=== PATIENT | male | born 1985 | race Two or more races ===

== ENCOUNTER 2023-05-06 07:58 | Emergency (ER) | payer MEDICAID ==
[~2023-05-06] VITALS: Ht 170.2 cm; Wt 63.5 kg
[~2023-05-06 07:58] MED LIST: AZIT250T13 PO
--- NOTE | 2023-05-06 08:26 | NUR ---
BIBS C/O THROAT PAIN SEEN A WEEK FOR SAME COMPLAINT STATES THAT HES NOW HE IS HAVING SHORTNESS OF BREATH, STATED HE FEEL WARM INSID EBODY. NO MEDS TAKEN
[2023-05-06] MEDS ORDERED: AMOXICILLIN TRIHYDRATE 250 MG CAPSULE ONE (08:27)
[2023-05-06] MEDS ORDERED: IBUPROFEN 600 MG TABLET ONE (08:27)
--- NOTE | 2023-05-06 08:29 | NUR ---
ORAL MEDS GIVEN
[2023-05-06] MEDS ORDERED: AMOX500C2 PO (08:31)
[2023-05-06] MEDS: IBUPROFEN 600 MG TABLET PO ONE (08:32)
[2023-05-06] MEDS: AMOXICILLIN TRIHYDRATE 500 MG CAPSULE PO ONE (08:32)
[2023-05-06 08:38] VITALS: BP 116/70; TEMP 98.2; O2SAT 99
--- NOTE | 2023-05-06 08:38 | NUR ---
Patient discharged to home in stable condition. Written and verbal after care instructions given. Patient verbalizes understanding of instruction.
== END 2023-05-06 08:38 | disposition home or self-care (01) ==
LOC: ER 08:02
DX: J02.9 Acute pharyngitis, unspecified (principal); Z79.899 Other long term (current) drug therapy; Z59.00 Homelessness unspecified

== ENCOUNTER 2023-05-10 23:39 | Emergency (ER) | payer MEDICAID ==
[~2023-05-10] VITALS: Ht 167.6 cm; Wt 63.5 kg
[~2023-05-10 23:39] MED LIST changes: +AMOX500C2 PO
[2023-05-11 01:50] VITALS: BP 124/78; TEMP 97.3; O2SAT 100
== END 2023-05-11 03:54 | disposition home or self-care (01) ==
LOC: IVT 23:42
DX: J02.8 Acute pharyngitis due to other specified organisms (principal); Z79.899 Other long term (current) drug therapy; Z59.00 Homelessness unspecified
CPT/HCPCS: 86403-TC

== ENCOUNTER 2023-06-08 20:15 | Emergency (ER) | payer MEDICAID ==
[~2023-06-08] VITALS: Ht 170.2 cm; Wt 63.5 kg
[2023-06-08 22:23] LABS: BASOPHILS # (AUTO) 0.1 K/uL (0.0-0.2); BASOPHILS % (AUTO) 1.2 % (0.0-2.0); EOSINOPHILS # (AUTO) 0.7 K/uL (0.0-0.7); EOSINOPHILS % (AUTO) 6.4 % (0.0-6.0); HEMATOCRIT 42 % (39-51); LYMPHOCYTES # (AUTO) 4.7 K/uL (0.8-4.8); LYMPHOCYTES % (AUTO) 44.5 % (20.0-44.0); MEAN CORPUSCULAR HEMOGLOBIN 27 PG (26.0-33.0); MEAN CORPUSCULAR HGB CONC 33 g/dl (31.0-36.0); MEAN CORPUSCULAR VOLUME 83 fL (80-96); MONOCYTES # (AUTO) 0.9 K/uL (0.1-1.30); MONOCYTES % (AUTO) 8.2 % (2.0-12.0); NEUTROPHILS # (AUTO) 4.2 K/uL (1.8-8.9); NEUTROPHILS % (AUTO) 39.7 % (43.0-81.0); PLATELET COUNT (AUTO) 195 K/uL (150-450); RED BLOOD CELL COUNT(AUTO) 5.09 MIL/uL (4.5-6.0); RED CELL DISTRIBUTION WIDTH 13.4 % (11.5-15.0); WHITE BLOOD COUNT (AUTO) 10.5 K/uL (4.3-11.0)
[2023-06-08 22:31] LABS: CALCIUM, SERUM 8.8 mg/dL (8.5-10.1); CARBON DIOXIDE 22 mmol/L (21-32); CHLORIDE 107 mmol/L (98-107); CREATININE 1.4 mg/dL (0.6-1.3); GLUCOSE 109 mg/dL (74-106); POTASSIUM 3.6 mmol/L (3.5-5.1); SODIUM SERUM 141 mmol/L (136-145); UREA NITROGEN, BLOOD 24 mg/dL (7-18)
[2023-06-08 22:37] LABS: ALANINE AMINOTRANSFERASE 26 U/L (12-78); ALBUMIN 3.5 g/dL (3.4-5.0); ALKALINE PHOSPHATASE 63 U/L (46-116); ASPARTATE AMINOTRANSFERASE 21 U/L (15-37); BILIRUBIN,TOTAL 0.2 mg/dL (0.2-1.0); TOTAL PROTEIN, SERUM 6.8 g/dL (6.4-8.2)
[2023-06-08 22:38] LABS: D-DIMER 0.19 mg/L(FEU (0.17-0.50); INR 1.05 (0.91-1.10); PARTIAL THROMBOPLASTIN TIME 29.1 SEC (24.3-34.3)
[2023-06-09 01:33] VITALS: BP 111/90; TEMP 98.2; O2SAT 100
== END 2023-06-09 01:33 | disposition home or self-care (01) ==
LOC: ER 20:21
DX: R07.89 Other chest pain (principal); F41.9 Anxiety disorder, unspecified; Z79.899 Other long term (current) drug therapy; Z59.00 Homelessness unspecified
CPT/HCPCS: 36415; 71045-TC; 80048-TC; 80076-TC; 84484-TC; 85025-TC; 85378-TC; 85730-TC